=== PATIENT | female | born 1945 | race Caucasian/White ===

== ENCOUNTER 2022-08-11 15:28 | Emergency (ER) | payer MEDICARE ==
[~2022-08-11] VITALS: Ht 165.1 cm; Wt 85.7 kg
[2022-08-11] MEDS ORDERED: NACL 0.9% 1,000 ML IV ONE ×2 (15:40→17:25)
[2022-08-11 15:45] VITALS: BP 113/69; PULSE 89; RESP 18; TEMP 98; O2SAT 98
[2022-08-11 16:00] LABS: BASOPHILS % (AUTO) 0.2 % (0.0-2.0); EOSINOPHILS % (AUTO) 0.1 % (0.0-4.0); HEMATOCRIT 20.5 % (36-48); LYMPHOCYTES # (AUTO) 1.7 K/uL (2.5-16.5); LYMPHOCYTES % (AUTO) 13.2 % (20.5-51.1); MEAN CORPUSCULAR HEMOGLOBIN 28 pg (27-31); MEAN CORPUSCULAR HGB CONC 33 g/dL (33-37); MEAN CORPUSCULAR VOLUME 85.4 fL (80-94); MONOCYTES # (AUTO) 0.5 K/uL (0.8-1.0); MONOCYTES % (AUTO) 4.3 % (1.7-9.3); NEUTROPHILS # (AUTO) 10.4 K/uL (1.8-7.7); NEUTROPHILS % (AUTO) 82.2 % (42.2-75.2); PLATELET COUNT (AUTO) 399 K/uL (140-450); RED CELL DISTRIBUTION WIDTH 15.4 % (11.6-13.7); WHITE BLOOD COUNT (AUTO) 12.7 K/uL (4.8-10.8)
[2022-08-11 16:08] LABS: HEMOGLOBIN 6.7 g/dL (12.0-16.0)
[2022-08-11 16:27] LABS: ALBUMIN 3.3 g/dL (3.4-5.0); ANION GAP 18.4 (8-16); ASPARTATE AMINOTRANSFERASE 19 U/L (15-37); CARBON DIOXIDE 21.6 mmol/L (21-32); CHLORIDE 104 mmol/L (98-107); CREATININE 1.5 mg/dL (0.6-1.3); GLUCOSE 166 mg/dL (74-106); SODIUM SERUM 140 mmol/L (136-145); TOTAL BILIRUBIN 0.3 mg/dL (0.0-1.0); UREA NITROGEN, BLOOD 19 mg/dL (7-18)
--- NOTE | 2022-08-11 16:30 | NUR ---
76 yo/f kari from pcp office w c/o sob starting today and worsening sciatica back pain radiating down r leg 10/05 , pt was at pcp office and told she had problems with her blood pressure and sugar unknown if it was high or low reports they weren't clear. pt denies chest pain, fevers, chills, n/v/d. pmh: siatica back pain, high cholesterol, acid reflux, htn, dm, thyroid dz allergies: denies
--- NOTE | 2022-08-11 16:47 | NUR ---
pt adds/reports occasional blood in stools red and black.
[2022-08-11] MEDS ORDERED: HYDROcodone/APAP 5/325 MG 1 TAB TAB PO ONE (17:30)
[2022-08-11] MEDS ORDERED: tumeric (18:26)
[2022-08-11] MEDS ORDERED: calcium (18:26)
[2022-08-11] MEDS ORDERED: hair skin nails (18:26)
[2022-08-11] MEDS ORDERED: OMEP20EC11 PO (18:26)
[2022-08-11] MEDS ORDERED: MELA10TA21 PO (18:26)
[2022-08-11] MEDS ORDERED: AMLO5TAB PO (18:26)
[2022-08-11] MEDS ORDERED: LEVO0.179 PO (18:26)
[2022-08-11] MEDS ORDERED: FERR-212 PO (18:26)
[2022-08-11] MEDS ORDERED: VITA-16 PO (18:26)
[2022-08-11] MEDS ORDERED: ATOR40TA PO (18:26)
[2022-08-11] MEDS ORDERED: GLIP5TER PO (18:26)
[2022-08-11] MEDS ORDERED: b6 (18:26)
[2022-08-11] MEDS ORDERED: BACL10TA4 PO (18:26)
--- NOTE | 2022-08-11 19:05 | NUR ---
pt report to kathy aldana
--- NOTE | 2022-08-11 19:29 | NUR ---
Consent signed per pt agreeing to administration of blood. Blood has been type and crossmatched. Blood sent from blood bank. Information on unit of blood checked against patient wristband at bedside by two nurses with kia alvares. All information matches. Patient or responsible democrat informed of potential complications associated with blood transfusion. Informed of possible transfusion reaction symptoms. Aware of need to notify nurse at once of itching, shortness of breath, flushing, feeling of impending doom, or other symptoms not previously present. Vital signs taken within 5 minutes prior to initiation of transfusion. KIA ALVARES will remain with patient for first 15 minutes of transfusion at which time vital signs will be re-assessed.
[2022-08-11 20:07] LABS: BILIRUBIN,URINE NEGATIVE (NEGATIVE); BLOOD, URINE NEGATIVE (NEGATIVE); COLOR,URINE YELLOW (YELLOW); LEUKOCYTE ESTERASE ,URINE 1+ (NEGATIVE); NITRITE, URINE NEGATIVE (NEGATIVE); UGLUCOSE NEGATIVE (NEGATIVE)
[2022-08-11 20:23] LABS: PROTHROMBIN TIME 10.7 secs (10.8-13.4)
[2022-08-11 20:24] LABS: APPEARANCE,URINE HAZY (CLEAR)
[2022-08-11 20:27] LABS: RBC,URINE 0-5 /HPF (0-5)
--- NOTE | 2022-08-11 21:09 | NUR ---
PT WILL BE TRANSFERED TO [facility] . CLINICIALS AND FACESHEET FAXED OVER TO [facility]
--- NOTE | 2022-08-11 22:10 | NUR ---
BLOOD TRANSFUSION COMPLETE. PATIENT WAS ABLE TO TOLERATE TRANSFUSION WELL, NO ADVERSE REACTIONS
[2022-08-11 22:41] LABS: HEMATOCRIT 23.7 % (36-48)
--- NOTE | 2022-08-11 23:46 | NUR ---
PATIENT WILL BE TRANSFERRING TO [facility], REPORT ENDORSED KIA MARROQUIN. [facility] SCHEDULED TO PIC UP PATIENT WITHIN 20 MINUTES
[2022-08-12 00:36] VITALS: BP 182/91; PULSE 91; RESP 20; TEMP 98.8; O2SAT 94
--- NOTE | 2022-08-12 00:36 | NUR ---
Patient to be transferred to [facility]. Is being transferred due to . Receiving facility has accepting physician and available space. ER physician has signed transfer form. Patient or responsible constitution party has agreed to transfer and signed form. Patient belongings inventoried and will be sent with patient. Copy of nursing notes, lab reports, EKG, Physicians Orders and X-rays to be sent with patient. Report called to CARA at receiving facility. [facility] ambulance service has been called for transfer.
== END 2022-08-12 00:36 | disposition short-term general hospital (02) ==
LOC: MED 15:28
DX: D64.9 Anemia, unspecified (principal); Z20.822 Contact with and (suspected) exposure to COVID-19; R55 Syncope and collapse; E11.9 Type 2 diabetes mellitus without complications; E03.9 Hypothyroidism, unspecified; Z79.4 Long term (current) use of insulin; Z79.899 Other long term (current) drug therapy
CPT/HCPCS: 36415; 36430; 71045; 80053; 81001; 83605; 83880; 84484; 85018; 85025; 85610; 85730; 86886; 86900; 86901; 86920; 87040; 87086; 87426; 96360; 96361; 99285; J7030; P9016